=== PATIENT | male | born 1975 | race Two or more races ===

== ENCOUNTER 2021-10-03 14:49 | Emergency (ER) | payer OTHER ==
[~2021-10-03] VITALS: Ht 190.5 cm; Wt 235.1 kg
[~2021-10-03 14:49] MED LIST: APIX5TAB PO; METO25TA4 PO; OLME20TA17 PO
[2021-10-03 16:07] VITALS: BP 105/58
[2021-10-03 17:23] LABS: INFLUENZA A PATIENT NEGATIVE (NEGATIVE); INFLUENZA B PATIENT NEGATIVE (NEGATIVE)
--- NOTE | 2021-10-03 17:40 | PHYS DOC ---
Past Medical History Past Medical History: Asthma, Hypertension Additional Past Medical Histor: morbid obesity Past Surgical History: Other Additional Past Surgical Histo: R tib/fib fx surgery Smoking Status: Never Smoker Alcohol Use: None General Adult EDM: Chief Complaint: FEVER HPI: HPI: Patient is a 46 year old male who presents with 1 day of body aches, sore throat, cough, shortness of air. Patient is vaccinated. He has a history of morbid obesity, hypertension asthma. Denies chest pain, dizziness, syncope, numbness or tingling, lightheadedness, numbness or tingling, focal weakness, abdominal pain, nausea, vomiting, diarrhea. Review of Systems: Review of Systems: Constitutional: + fever or +chills. [] Eyes: Denies change in visual acuity. [] HENT: Denies nasal congestion or +sore throat. [] Respiratory: + cough or +shortness of breath. [] Cardiovascular: Denies chest pain or edema. [] GI: Denies abdominal pain, nausea, vomiting, bloody stools or diarrhea. [] : Denies dysuria. [] Musculoskeletal: Denies back pain or joint pain. + Generalized body aches [] Integument: Denies rash. [] Neurologic: Denies headache, focal weakness or sensory changes. [] Endocrine: Denies polyuria or polydipsia. [] Lymphatic: Denies swollen glands. [] Psychiatric: Denies depression or anxiety. [] Heart Score: C/O Chest Pain: No Allergies: Allergies: Allergies Coded Allergies Type Severity Reaction Last Updated Verified Penicillins Allergy Intermediate hives 11/20/20 Yes Physical Exam: PE: Constitutional: Well developed, well nourished, no acute distress, non-toxic appearance. Morbid obesity [] HENT: Normocephalic, atraumatic, bilateral external ears normal, oropharynx moist, no oral exudates, nose normal. [] Eyes: PERRLA, EOMI, conjunctiva normal, no discharge. [] Neck: Normal range of motion, no tenderness, supple, no stridor. [] Cardiovascular:Heart rate regular rhythm, no murmur [] Lungs & Thorax: Bilateral upper breath sounds clear and lower diminished to auscultation [] Abdomen: Bowel sounds normal, soft, no tenderness, no masses, no pulsatile masses. [] Skin: Warm, dry, no erythema, no rash. [] Back: No tenderness, no CVA tenderness. [] Extremities: No tenderness, no cyanosis, no clubbing, ROM intact, no edema. [] Neurologic: Alert and oriented X 3, normal motor function, normal sensory function, no focal deficits noted. [] Psychologic: Affect normal, judgement normal, mood normal. [] Current Patient Data: Labs: Laboratory Tests Test 10/03/21 16:49 Influenza Type A Antigen Negative (NEGATIVE) Influenza Type B Antigen Negative (NEGATIVE) SARS-CoV-2 Antigen (Rapid) Positive (NEGATIVE) *A Vital Signs: Vital Signs Date Time Temp Pulse Resp B/P (MAP) Pulse Ox O2 Delivery O2 Flow Rate FiO2 10/03/21 16:07 99.3 92 18 105/58 (74) 94 Room Air 99.3 EKG: EKG: [] Radiology/Procedures: Radiology/Procedures: [] Impression: [facility] [address] [place], [place] [id number] IMAGING REPORT Signed PATIENT: CALVIN VERGARAUNT: [id number] : 1975 LOCATION: ER AGE: 46 SEX: M EXAM STATUS: REG ER ORD. PHYSICIAN: TANIKA BHATT APRN REASON: soa, cough PROCEDURE: PORTABLE CHEST 1V EXAMINATION: Chest radiograph. VIEWS: 1 COMPARISON: None INDICATION:46 years, Male, cough. FINDINGS: Normal cardiomediastinal silhouette. Bilateral perihilar and basilar pulmonary infiltrates. No pleural effusion or pneumothorax. No acute osseous process. IMPRESSION: Bilateral perihilar and basilar pulmonary infiltrates, may represent atelectatic changes versus pneumonia. Electronically signed by: Sylvia Thorpe MD (10/03/2021 5:45 PM) [facility] DICTATED and SIGNED BY: SYLVIA THORPE MD DATE: 10/03/21 [id number] 0 Course & Med Decision Making: Course & Med Decision Making Pertinent Labs and Imaging studies reviewed. (See chart for details) COVID-19 CRITERIA: The patient was evaluated during the global COVID-19 pandemic, and that diagnosis was suspected/considered upon their initial presentation. Their evaluation, treatment and testing was consistent with current guidelines for patients who present with complaints or symptoms that may be related to COVID-19. See HPI. Alert and oriented x4. Ambulatory steady gait. Speaks in full clear sentences. Morbidly obese. Skin pink warm and dry. Cap refill less than 2 seconds. Vital signs within normal limits. Rapid Covid is positive. Negative strep. Patient is not hypoxic. X-ray showing some pneumonia. Patient will be sent home with a inhaler. [] Dragon Disclaimer: [employer] Disclaimer: This electronic medical record was generated, in whole or in part, using a voice recognition dictation system. COVID-19 Patient Risks: Age 65 or older: No Sign of co-morbidity: Yes Exp to person + for COVID: No Exp to PUI: Yes Travel from affected area: No Lower respiratory symptoms: Yes Fever: Yes Other: Yes (sore throat) PPE Use: Full PPE with N95 mask or PAPR: Yes Departure Departure Impression: Primary Impression: Pneumonia due to COVID-19 virus Disposition: HOME / SELF CARE / HOMELESS Condition: STABLE Referrals: NO PCP (PCP) Patient Instructions: Fever, Adult, Pneumonia, Adult Additional Instructions: Quarantine for the next 10 days. Drink plenty of fluids to stay hydrated. Rest. Alternate Tylenol and ibuprofen to help with fever and body aches. Come back to the emergency room for severe shortness of breath, chest pain, or if he cannot keep down fluids. Scripts Albuterol Sulfate (PROAIR HFA INHALER) 8.5 Gm Hfa.aer.ad 1-2 PUFF INH PRN Q6HRS PRN for SHORTNESS OF BREATH, #1 EACH 0 Refills Prov: TANIKA BHATT RADIO MAINTAINER 10/03/21 TANIKA BHATT APRN Oct 03, 2021 17:40
--- NOTE | 2021-10-03 17:47 | RAD ---
EXAMINATION: Chest radiograph. VIEWS: 1 COMPARISON: None INDICATION:46 years, Male, cough. FINDINGS: Normal cardiomediastinal silhouette. Bilateral perihilar and basilar pulmonary infiltrates. No pleura l effusion or pneumothorax. No acute osseous process. IMPRESSION: Bilateral perihilar and basilar pulmonary infiltrates, may represent atelectatic changes versus pneum onia. Electronically signed by: Dusty Thorpe MD (10/03/2021 5:45 PM) [facility]
[2021-10-03] MEDS ORDERED: ALBU2.5V8 INH (17:52)
== END 2021-10-03 18:24 | disposition home or self-care (01) ==
LOC: ER 14:49
DX: U07.1 COVID-19 (principal); J12.82 Pneumonia due to coronavirus disease 2019; J45.909 Unspecified asthma, uncomplicated; I10 Essential (primary) hypertension; Z88.0 Allergy status to penicillin
CPT/HCPCS: 71045; 87070; 87147; 87426; 87804; 87880; 99284